=== PATIENT | male | born 1965 | race Caucasian/White ===

== ENCOUNTER 2024-02-08 15:00 | Emergency (ER) | payer MEDICARE ==
[~2024-02-08] VITALS: Ht 182.9 cm; Wt 104.3 kg
[2024-02-08 15:15] VITALS: TEMP 98.5
[2024-02-08 15:48] LABS: STREPTOCOCCUS GRP A ANTIGEN NEGATIVE (NEGATIVE)
[2024-02-08 15:58] LABS: CORONAVIRUS COVID-19 AG NEGATIVE (NEGATIVE); INFLUENZA A AG NEGATIVE (NEGATIVE); INFLUENZA B AG NEGATIVE (NEGATIVE)
[2024-02-08 16:54] VITALS: PULSE 76; RESP 18; O2SAT 100
[2024-02-08] MEDS ORDERED: BENZONATATE100 MG PO (17:02)
[2024-02-08] MEDS ORDERED: AZITHROMYCIN250 MG PO (17:02)
[2024-02-08] MEDS ORDERED: VENTOLIN HFA18 GM INH (17:02)
[2024-02-08] MEDS ORDERED: MEDROL4 M2 PO (17:02)
== END 2024-02-08 17:05 | disposition home or self-care (01) ==
LOC: EDBD 15:00 → ER 16:00
DX: R05.9 Cough, unspecified (principal); J40 Bronchitis, not specified as acute or chronic; R09.89 Other specified symptoms and signs involving the circulatory and respiratory systems; Z11.52 Encounter for screening for COVID-19; I10 Essential (primary) hypertension; H54.8 Legal blindness, as defined in USA; G40.909 Epilepsy, unspecified, not intractable, without status epilepticus
CPT/HCPCS: 71045; 83518; 87070; 99283

== ENCOUNTER 2024-04-11 12:39 | Emergency (ER) | payer MEDICARE ==
[~2024-04-11] VITALS: Ht 182.9 cm; Wt 99.8 kg
[~2024-04-11 12:39] MED LIST: AZITHROMYCIN250 MG PO; BENZONATATE100 MG PO; MEDROL4 M2 PO; VENTOLIN HFA18 GM INH
[2024-04-11 12:59] VITALS: TEMP 98
[2024-04-11 13:36] LABS: INFLUENZA A AG NEGATIVE (NEGATIVE)
[2024-04-11 13:37] LABS: CORONAVIRUS COVID-19 AG NEGATIVE (NEGATIVE); INFLUENZA B AG NEGATIVE (NEGATIVE)
[2024-04-11 13:50] LABS: STREPTOCOCCUS GRP A ANTIGEN NEGATIVE (NEGATIVE)
[2024-04-11] MEDS ORDERED: PREDNISONE20 MG PO (14:02)
[2024-04-11] MEDS ORDERED: VENTOLIN HFA18 GM INH (14:02)
[2024-04-11] MEDS ORDERED: AZITHROMYCIN250 MG PO (14:02)
[2024-04-11 14:07] VITALS: PULSE 86; RESP 16; O2SAT 99
== END 2024-04-11 14:10 | disposition home or self-care (01) ==
LOC: ER 12:48
DX: R05.9 Cough, unspecified (principal); J06.9 Acute upper respiratory infection, unspecified; I10 Essential (primary) hypertension; G40.909 Epilepsy, unspecified, not intractable, without status epilepticus; Z11.52 Encounter for screening for COVID-19
CPT/HCPCS: 71046; 83518; 87070; 99282